=== PATIENT | male | born 1940 | race Caucasian/White ===

== ENCOUNTER 2017-05-11 13:49 | Emergency (ER) | payer MEDICARE, BC ==
[2017-05-11] MEDS: LIDOCAINE 1%/EPI 30 ML INJ INJ (17:21)
== END 2017-05-11 18:58 | disposition home or self-care (01) ==
LOC: FTE 13:49
DX: S01.112A Laceration without foreign body of left eyelid and periocular area, initial encounter (principal); I10 Essential (primary) hypertension; W01.0XXA Fall on same level from slipping, tripping and stumbling without subsequent striking against object, initial encounter; Y92.9 Unspecified place or not applicable; Z79.84 Long term (current) use of oral hypoglycemic drugs
CPT/HCPCS: 70450; 70480; 99285-25